=== PATIENT | female | born 1960 | race African-American/Black ===

== ENCOUNTER 2023-04-18 13:28 | Emergency (ER) | payer MEDICARE, MEDICAID ==
[~2023-04-18] VITALS: Ht 160 cm; Wt 90.0 kg
[2023-04-18 13:36] VITALS: TEMP 97.7; O2SAT 100
[2023-04-18] MEDS ORDERED: ASPIRIN 81MG TABLET PO ONE (14:00)
[2023-04-18 14:35] LABS: ALANINE AMINOTRANSFERASE 19 IU/L (10-49); ASPARTATE AMINOTRANSFERASE 21 IU/L (<34); BASOPHILS % 0.1 % (0.0-2.0); CALCIUM 9.2 mg/dL (8.7-10.4); CARBON DIOXIDE 25 mEq/L (21-32); CHLORIDE 109 mEq/L (98-107); EOSINOPHILS % 0.5 % (0.0-5.0); GLUCOSE 124 mg/dL (70-105); HEMATOCRIT. 37.6 % (36.0-48.0); HEMOGLOBIN. 12.3 g/dL (12.0-16.0); LYMPHOCYTES % 23.6 % (20.0-50.0); MEAN CORPUSCULAR HEMOGLOBIN 29.8 pg (28.0-32.0); MEAN CORPUSCULAR HGB CONC 32.8 g/dL (31.0-37.0); MEAN PLATELET VOLUME 8.2 fl (7.4-10.4); MONOCYTES % 3.9 % (2.0-8.0); NEUTROPHILS % 71.9 % (40.0-76.0); PLATELET 196 x1000/uL (130-400); POTASSIUM 3.6 mEq/L (3.5-5.1); PROTEIN TOTAL 7.3 g/dL (6.0-8.3); RED BLOOD CELL COUNT 4.13 mill/uL (4.2-5.4); RED CELL DISTRIBUTION WIDTH 13.6 % (11.6-14.6); SODIUM 142 mEq/L (136-145); TROPONIN I HIGH SENSITIVITY < 4 ng/L (3.0-34); UREA NITROGEN BLOOD 10 mg/dL (9-23); WHITE BLOOD COUNT 5.8 x1000/uL (4.5-11.0)
[2023-04-18] MEDS ORDERED: SODIUM CHLORIDE 0.9% 1,000 ML IV ONE (14:45)
[2023-04-18 16:56] LABS: TROPONIN I HIGH SENSITIVITY < 4 ng/L (3.0-34)
[2023-04-18 17:55] VITALS: BP 156/72; PULSE 81; RESP 19
== END 2023-04-18 17:55 | disposition left against medical advice (07) ==
LOC: ER 13:28 → CANBEDREQ 04-20 14:14
DX: R55 Syncope and collapse (principal); Z53.21 Procedure and treatment not carried out due to patient leaving prior to being seen by health care provider
CPT/HCPCS: 99285; 96360; 71045; 80053; 83880; 85025; 84484; 36415; 93005; J7030